=== PATIENT | male | born 1980 | race Caucasian/White ===

== ENCOUNTER 2018-10-11 18:00 | Inpatient (IN) | payer MEDICAID ==
[~2018-10-11] VITALS: Ht 175.3 cm; Wt 121.8 kg
[2018-10-11 19:00] VITALS: BP 123/80
[2018-10-11 19:15] VITALS: BP 123/80
[2018-10-11] MEDS: LORazepam 2 MG TABLET PO PRN (19:31)
[2018-10-11] MEDS ORDERED: LOPERAMIDE HCL 2 MG CAPSULE PO PRN (20:45)
[2018-10-11] MEDS ORDERED: GuaiFENesin/D-METHORPHAN [SUGAR-FREE] 200-20MG/10 ML SYRUP UDCUP PO PRN (20:45)
[2018-10-11] MEDS ORDERED: MAGNESIUM HYDROXIDE SUSPENSION 30 ML UDCUP PO PRN (20:45)
[2018-10-11] MEDS ORDERED: PETROLATUM,WHITE 71 GM JELLY TP PRN (20:45)
[2018-10-11] MEDS ORDERED: IBUPROFEN 400 MG TABLET PO PRN (20:45)
[2018-10-11] MEDS ORDERED: MAG HYDROX/AL HYDROX/SIMETH ES 30 ML SUSPENSION UDCUP PO PRN (20:45)
[2018-10-11] MEDS ORDERED: ACETAMINOPHEN 325 MG TABLET PO PRN (20:45)
[2018-10-11] MEDS ORDERED: ONDANSETRON HCL 4 MG TABLET PO PRN (20:45)
[2018-10-11] MEDS ORDERED: DOCUSATE SODIUM 100 MG CAPSULE PO PRN (20:45)
[2018-10-11] MEDS ORDERED: ALBUTEROL SULFATE HFA 90 MCG/PUFF 8 GM INHALER IH PRN (20:45)
[2018-10-11] MEDS ORDERED: NICOTINE 14 MG/24 HOUR PATCH TD PRN (20:45)
[2018-10-11] MEDS ORDERED: CloNIDine HCL 0.1 MG TABLET PO PRN (20:45)
[2018-10-11] MEDS: ZOLPIDEM TARTRATE 10 MG TABLET PO PRN (20:52)
[2018-10-11] MEDS ORDERED: LORazepam 2 MG TABLET PO SCH (21:00)
[2018-10-12] VITALS (7 sets, daily range): BP systolic 113–125; BP diastolic 72–91
[2018-10-12] MEDS: LORazepam 2 MG TABLET PO PRN ×2 (00:43→06:35)
[2018-10-12] MEDS ORDERED: LORazepam 1 MG TABLET PO PRN (07:00)
[2018-10-12 07:08] LABS: BASOPHILS % (AUTO) 0.4 % (0.0-2.0); EOSINOPHILS % (AUTO) 2.4 % (1.0-6.0); HEMATOCRIT 42.8 % (41-53); HEMOGLOBIN 14.2 g/dL (13.5-17.5); LYMPHOCYTES # (AUTO) 1.8 K/uL (1.0-4.8); LYMPHOCYTES % (AUTO) 28.6 % (22.0-44.0); MEAN CORPUSCULAR HEMOGLOBIN 30.4 pg (26.0-34.0); MEAN CORPUSCULAR HGB CONC 33.3 G/dL (31.0-37.0); MEAN CORPUSCULAR VOLUME 91 fL (80-100); MONOCYTES # (AUTO) 0.7 K/uL (0.1-1.0); MONOCYTES % (AUTO) 10.7 % (2.0-9.0); NEUTROPHILS # (AUTO) 3.6 K/uL (1.8-7.7); NEUTROPHILS % (AUTO) 57.9 % (40.0-70.0); PLATELET COUNT (AUTO) 105 K/uL (150-450); RED BLOOD CELL COUNT(AUTO) 4.68 MIL/uL (4.50-5.90); RED CELL DISTRIBUTION WIDTH 14.9 % (11.5-14.5)
[2018-10-12 07:35] LABS: ALANINE AMINOTRANSFERASE 103 U/L (12-78); ALBUMIN 3.5 g/dL (3.4-5.0); ALKALINE PHOSPHATASE 114 U/L (46-116); ANION GAP 5 mmol/L (8-16); ASPARTATE AMINOTRANSFERASE 78 U/L (15-37); BILIRUBIN,TOTAL 0.4 mg/dL (0.1-1.0); CALCIUM, TOTAL 8.3 mg/dL (8.8-10.5); CARBON DIOXIDE 29 mmol/L (22-29); CHLORIDE 106 mmol/L (98-107); CHOL/HDL RATIO 2.2 (4.2-7.3); CHOLESTEROL 141 mg/dL (131-200); CREATININE 0.87 mg/dL (0.60-1.30); GLOMERULAR FILTR. RATE CALC > 60 mL/min (>60); GLUCOSE,RANDOM 102 mg/dL (70-110); HDL CHOLESTEROL 64 mg/dL (40-60); LDL CHOL (CALC.) 63 mg/dL (0-130); POTASSIUM 3.8 mmol/L (3.5-5.1); SODIUM SERUM 140 mmol/L (136-145); THYROID STIMULATING HORMONE 1.74 uIU/mL (0.36-3.74); TOTAL PROTEIN, SERUM 7.4 g/dL (6.4-8.2); TRIGLYCERIDES 71 mg/dL (15-150); UREA NITROGEN, BLOOD 12 mg/dL (7-18)
[2018-10-12 07:36] LABS: HEMOGLOBIN A1C 5.1 % (4.5-6.2)
[2018-10-12] MEDS: LORazepam 1 MG TABLET PO SCH ×4 (09:08→20:08)
[2018-10-12] MEDS: GABAPENTIN 300 MG CAPSULE PO SCH ×3 (09:08→16:27)
[2018-10-12] MEDS: QUEtiapine FUMARATE 100 MG TABLET PO SCH ×3 (09:09→16:27)
[2018-10-12] MEDS: PANTOPRAZOLE SODIUM 40 MG DR TABLET PO SCH (09:09)
[2018-10-12] MEDS: PROPRANOLOL HCL 10 MG TABLET PO SCH ×3 (09:09→16:27)
[2018-10-12] MEDS: BuPROPion HCL XL 150 MG ER TABLET PO SCH (09:09)
[2018-10-12] MEDS: TraMADol HCL 50 MG TABLET PO PRN ×2 (09:58→20:08)
[2018-10-12] MEDS: ZOLPIDEM TARTRATE 10 MG TABLET PO PRN (20:08)
[2018-10-13 02:00] VITALS: BP 121/79
[2018-10-13 08:22] VITALS: BP 124/78
[2018-10-13 08:33] VITALS: BP 124/78
[2018-10-13] MEDS: PROPRANOLOL HCL 10 MG TABLET PO SCH ×3 (08:35→16:20)
[2018-10-13] MEDS: TraMADol HCL 50 MG TABLET PO PRN ×2 (08:35→16:23)
[2018-10-13] MEDS: QUEtiapine FUMARATE 100 MG TABLET PO SCH ×3 (08:35→16:21)
[2018-10-13] MEDS: GABAPENTIN 300 MG CAPSULE PO SCH ×3 (08:35→16:21)
[2018-10-13] MEDS: PANTOPRAZOLE SODIUM 40 MG DR TABLET PO SCH (08:35)
[2018-10-13] MEDS: BuPROPion HCL XL 150 MG ER TABLET PO SCH (08:35)
[2018-10-13] MEDS: LORazepam 1 MG TABLET PO PRN ×3 (09:34→20:40)
[2018-10-13 13:21] VITALS: BP 131/71
[2018-10-13 16:53] VITALS: BP 104/67
[2018-10-13] MEDS: ZOLPIDEM TARTRATE 10 MG TABLET PO PRN (20:40)
[2018-10-14 01:40] VITALS: BP 118/78
[2018-10-14] MEDS: LORazepam 1 MG TABLET PO PRN (01:42)
[2018-10-14 05:23] VITALS: BP 118/78
[2018-10-14 09:18] VITALS: BP 122/81
[2018-10-14] MEDS: QUEtiapine FUMARATE 100 MG TABLET PO SCH ×2 (09:42→13:00)
[2018-10-14] MEDS: GABAPENTIN 300 MG CAPSULE PO SCH ×3 (09:42→16:41)
[2018-10-14] MEDS: PROPRANOLOL HCL 10 MG TABLET PO SCH ×3 (09:42→16:41)
[2018-10-14] MEDS: PANTOPRAZOLE SODIUM 40 MG DR TABLET PO SCH (09:43)
[2018-10-14] MEDS: BuPROPion HCL XL 150 MG ER TABLET PO SCH (09:43)
[2018-10-14] MEDS: LORazepam 2 MG TABLET PO PRN ×2 (09:45→18:09)
[2018-10-14 17:55] VITALS: BP 126/85
[2018-10-14] MEDS: TraMADol HCL 50 MG TABLET PO PRN (17:55)
[2018-10-14 18:55] VITALS: BP 105/73
[2018-10-14] MEDS: QUEtiapine FUMARATE 300 MG TABLET PO SCH (20:21)
[2018-10-14] MEDS: ZOLPIDEM TARTRATE 10 MG TABLET PO PRN (21:49)
[2018-10-15 04:06] VITALS: BP 111/71
[2018-10-15] MEDS: LORazepam 2 MG TABLET PO PRN ×4 (04:07→20:46)
[2018-10-15 08:22] VITALS: BP 112/79
[2018-10-15] MEDS: PROPRANOLOL HCL 10 MG TABLET PO SCH ×3 (09:41→16:23)
[2018-10-15] MEDS: GABAPENTIN 300 MG CAPSULE PO SCH ×3 (09:43→16:22)
[2018-10-15] MEDS: QUEtiapine FUMARATE 100 MG TABLET PO SCH ×2 (09:44→12:15)
[2018-10-15] MEDS: PANTOPRAZOLE SODIUM 40 MG DR TABLET PO SCH (09:44)
[2018-10-15] MEDS: BuPROPion HCL XL 150 MG ER TABLET PO SCH (09:44)
[2018-10-15] MEDS: TraMADol HCL 50 MG TABLET PO PRN (16:23)
[2018-10-15 16:24] VITALS: BP 108/62
[2018-10-15] MEDS: ZOLPIDEM TARTRATE 10 MG TABLET PO PRN (20:46)
[2018-10-15] MEDS: QUEtiapine FUMARATE 300 MG TABLET PO SCH (20:46)
[2018-10-16 06:33] VITALS: BP 120/86
[2018-10-16] MEDS: LORazepam 2 MG TABLET PO PRN ×4 (06:36→20:52)
[2018-10-16] MEDS: TraMADol HCL 50 MG TABLET PO PRN ×2 (06:36→16:27)
[2018-10-16 08:00] VITALS: BP 108/78
[2018-10-16] MEDS: LevETIRAcetam 250 MG TABLET PO SCH ×2 (09:43→16:27)
[2018-10-16] MEDS: PROPRANOLOL HCL 10 MG TABLET PO SCH ×3 (09:43→16:25)
[2018-10-16] MEDS: GABAPENTIN 300 MG CAPSULE PO SCH ×3 (09:43→16:27)
[2018-10-16] MEDS: PANTOPRAZOLE SODIUM 40 MG DR TABLET PO SCH (09:43)
[2018-10-16] MEDS: BuPROPion HCL XL 150 MG ER TABLET PO SCH (09:43)
[2018-10-16] MEDS: QUEtiapine FUMARATE 100 MG TABLET PO SCH ×2 (09:44→13:22)
[2018-10-16 16:28] VITALS: BP 108/65
[2018-10-16] MEDS: ZOLPIDEM TARTRATE 10 MG TABLET PO PRN (20:52)
[2018-10-16] MEDS: QUEtiapine FUMARATE 300 MG TABLET PO SCH (20:52)
[2018-10-17] MEDS: TraMADol HCL 50 MG TABLET PO PRN ×2 (06:21→19:30)
[2018-10-17 06:22] VITALS: BP 118/63
[2018-10-17] MEDS: LORazepam 2 MG TABLET PO PRN ×3 (06:22→20:46)
[2018-10-17] MEDS: PROPRANOLOL HCL 10 MG TABLET PO SCH ×3 (08:42→18:00)
[2018-10-17] MEDS: GABAPENTIN 300 MG CAPSULE PO SCH ×3 (08:42→18:00)
[2018-10-17] MEDS: LevETIRAcetam 250 MG TABLET PO SCH ×2 (08:42→18:00)
[2018-10-17] MEDS: PANTOPRAZOLE SODIUM 40 MG DR TABLET PO SCH (08:42)
[2018-10-17] MEDS: QUEtiapine FUMARATE 100 MG TABLET PO SCH ×2 (08:42→12:28)
[2018-10-17] MEDS: BuPROPion HCL XL 150 MG ER TABLET PO SCH (08:42)
[2018-10-17 08:44] VITALS: BP 103/68
[2018-10-17 19:29] VITALS: BP 127/69
[2018-10-17] MEDS: QUEtiapine FUMARATE 300 MG TABLET PO SCH (20:46)
[2018-10-17] MEDS: ZOLPIDEM TARTRATE 10 MG TABLET PO PRN (20:46)
[2018-10-18 02:48] VITALS: BP 100/70
[2018-10-18] MEDS: LORazepam 2 MG TABLET PO PRN ×4 (02:48→19:37)
[2018-10-18 09:25] VITALS: BP 125/80
[2018-10-18] MEDS: PROPRANOLOL HCL 10 MG TABLET PO SCH ×3 (09:27→16:32)
[2018-10-18] MEDS: QUEtiapine FUMARATE 100 MG TABLET PO SCH ×2 (09:27→13:18)
[2018-10-18] MEDS: BuPROPion HCL XL 150 MG ER TABLET PO SCH (09:27)
[2018-10-18] MEDS: PANTOPRAZOLE SODIUM 40 MG DR TABLET PO SCH (09:27)
[2018-10-18] MEDS: GABAPENTIN 300 MG CAPSULE PO SCH ×3 (09:27→16:31)
[2018-10-18] MEDS: LevETIRAcetam 250 MG TABLET PO SCH ×2 (09:27→16:32)
[2018-10-18] MEDS: TraMADol HCL 50 MG TABLET PO PRN ×2 (09:32→20:38)
[2018-10-18 13:15] VITALS: BP 132/93
[2018-10-18 17:55] VITALS: BP 128/76
[2018-10-18] MEDS: QUEtiapine FUMARATE 300 MG TABLET PO SCH (20:00)
[2018-10-18] MEDS: ZOLPIDEM TARTRATE 10 MG TABLET PO PRN (20:38)
[2018-10-19] MEDS: BuPROPion HCL XL 150 MG ER TABLET PO SCH (09:30)
[2018-10-19] MEDS: PANTOPRAZOLE SODIUM 40 MG DR TABLET PO SCH (09:30)
[2018-10-19] MEDS: PROPRANOLOL HCL 10 MG TABLET PO SCH ×3 (09:30→16:24)
[2018-10-19] MEDS: LevETIRAcetam 250 MG TABLET PO SCH ×2 (09:30→16:24)
[2018-10-19] MEDS: GABAPENTIN 300 MG CAPSULE PO SCH ×3 (09:30→16:24)
[2018-10-19] MEDS: QUEtiapine FUMARATE 100 MG TABLET PO SCH ×2 (09:30→13:13)
[2018-10-19 09:35] VITALS: BP 146/92
[2018-10-19] MEDS: LORazepam 2 MG TABLET PO PRN ×3 (09:35→21:41)
[2018-10-19] MEDS: TraMADol HCL 50 MG TABLET PO PRN ×2 (09:36→17:42)
[2018-10-19 10:36] VITALS: BP 142/90
[2018-10-19 17:16] VITALS: BP 109/76
[2018-10-19 17:42] VITALS: BP 110/75
[2018-10-19 18:42] VITALS: BP 101/65
[2018-10-19] MEDS: QUEtiapine FUMARATE 300 MG TABLET PO SCH (20:44)
[2018-10-19] MEDS: ZOLPIDEM TARTRATE 10 MG TABLET PO PRN (21:41)
[2018-10-20] MEDS: LORazepam 2 MG TABLET PO PRN ×2 (06:35→11:50)
[2018-10-20] MEDS: TraMADol HCL 50 MG TABLET PO PRN (06:36)
[2018-10-20 08:30] VITALS: BP 118/65
[2018-10-20] MEDS ORDERED: BUPR-93 PO (08:55)
[2018-10-20] MEDS ORDERED: QUET100T PO (08:55)
[2018-10-20] MEDS ORDERED: GABA-531 PO (08:55)
[2018-10-20] MEDS ORDERED: QUET300T2 PO (08:57)
[2018-10-20] MEDS: BuPROPion HCL XL 150 MG ER TABLET PO SCH (09:44)
[2018-10-20] MEDS: PROPRANOLOL HCL 10 MG TABLET PO SCH ×2 (09:44→11:49)
[2018-10-20] MEDS: GABAPENTIN 300 MG CAPSULE PO SCH ×2 (09:44→11:49)
[2018-10-20] MEDS: QUEtiapine FUMARATE 100 MG TABLET PO SCH ×2 (09:44→11:49)
[2018-10-20] MEDS: PANTOPRAZOLE SODIUM 40 MG DR TABLET PO SCH (09:44)
[2018-10-20] MEDS: LevETIRAcetam 250 MG TABLET PO SCH (09:44)
[2018-10-20] MEDS ORDERED: LEVE250T55 PO (11:27)
[2018-10-20] MEDS ORDERED: PANT40TA25 PO (11:27)
[2018-10-20] MEDS ORDERED: PROP10TA73 PO (11:28)
== END 2018-10-20 15:00 | disposition home or self-care (01) | DRG 751 ==
LOC: 3EI 18:00
PROVIDERS: ADMIT Psychiatry & Neurology Psychiatry; ATTEND Psychiatry & Neurology Psychiatry
DX: F33.2 Major depressive disorder, recurrent severe without psychotic features (principal); G40.909 Epilepsy, unspecified, not intractable, without status epilepticus; K74.60 Unspecified cirrhosis of liver; R45.851 Suicidal ideations; F10.20 Alcohol dependence, uncomplicated; F43.10 Post-traumatic stress disorder, unspecified; I10 Essential (primary) hypertension; Z91.5 Personal history of self-harm; F19.10 Other psychoactive substance abuse, uncomplicated; Z71.51 Drug abuse counseling and surveillance of drug abuser
CPT/HCPCS: 83036; 84443; 87081; G0482

== ENCOUNTER 2019-08-23 11:03 | Emergency (ER) | payer MEDICAID, OTHER ==
[~2019-08-23] VITALS: Ht 175.3 cm; Wt 78.2 kg
[~2019-08-23 11:03] MED LIST: BUPR-93 PO; ESCI10TA PO; ESCI20TA PO; FOLI1 PO; GABA-529 PO; GABA-531 PO; LEVE250T55 PO; LIB25 PO; LORA-1000 PO; MULT-12 PO; MULT-1239 PO; PANT40TA25 PO; PROP10TA73 PO; QUET100T PO; QUET300T2 PO; THIA100T67 PO; THIA100T72 PO
[2019-08-23 12:02] VITALS: BP 119/82
== END 2019-08-23 12:06 | disposition home or self-care (01) ==
LOC: EMS 11:04
DX: G47.00 Insomnia, unspecified (principal); F10.20 Alcohol dependence, uncomplicated; F43.10 Post-traumatic stress disorder, unspecified; F41.9 Anxiety disorder, unspecified; F17.210 Nicotine dependence, cigarettes, uncomplicated; K74.60 Unspecified cirrhosis of liver; I10 Essential (primary) hypertension; F32.9 Major depressive disorder, single episode, unspecified; F12.90 Cannabis use, unspecified, uncomplicated; Z79.899 Other long term (current) drug therapy
CPT/HCPCS: 99406

== ENCOUNTER 2019-08-24 23:06 | Emergency (ER) | payer OTHER ==
[~2019-08-24] VITALS: Ht 175.3 cm; Wt 122.7 kg
[2019-08-25] MEDS ORDERED: DiphenhydrAMINE HCL 25 MG CAPSULE PO ONE (02:15)
[2019-08-25 03:07] VITALS: BP 125/62
== END 2019-08-25 03:08 | disposition home or self-care (01) ==
LOC: EMS 23:06
DX: F10.20 Alcohol dependence, uncomplicated (principal); G47.00 Insomnia, unspecified; I10 Essential (primary) hypertension; F32.9 Major depressive disorder, single episode, unspecified; F17.210 Nicotine dependence, cigarettes, uncomplicated; Z76.0 Encounter for issue of repeat prescription; Z79.899 Other long term (current) drug therapy